=== PATIENT | male | born 2000 | race Caucasian/White ===

== ENCOUNTER 2018-08-11 02:30 | Emergency (ER) | payer OTHER, BC ==
[2018-08-11 02:38] VITALS: BP 143/74; PULSE 105; RESP 18; TEMP 99.4
[2018-08-11] MEDS ORDERED: SODIUM CHLORIDE 0.9% 1,000 ML IV STA ×2 (02:50)
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
[2018-08-11 03:11] LABS: Glucose,Whole Blood 101 mg/dL (75-99)
[2018-08-11 03:23] LABS: Basophils % (A) 0 %; Eosinophils # (A) 0.1 k/uL (0-0.7); Eosinophils % (A) 1 %; HCT 47.1 % (39.0-53.0); HGB 15.4 gm/dL (13.0-17.5); Lymphocytes # (A) 1.3 k/uL (1.0-4.8); Lymphocytes % (A) 13 %; MCH 28.1 pg (25.0-35.0); MCHC 32.6 g/dL (31.0-37.0); MCV 86.2 fL (80.0-100.0); Mean Platelet Volume 6.7; Monocytes # (A) 0.5 k/uL (0-1.0); Monocytes % (A) 5 %; Neutrophils # (A) 8.3 k/uL (1.3-7.7); Neutrophils % (A) 80 %; Platelet Count 199 k/uL (150-450); RBC 5.47 m/uL (4.30-5.90); RDW 13.1 % (11.5-15.5); WBC 10.4 k/uL (4.0-11.0)
[2018-08-11 03:28] LABS: INR 1.1 (<1.2); Prothrombin Time 11.3 sec (9.0-12.0)
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
[2018-08-11 03:38] LABS: ALT 34 U/L (21-72); AST 32 U/L (17-59); Albumin 4.5 g/dL (3.5-5.0); Alcohol <10 mg/dL; Alkaline Phosphatase 62 U/L (38-126); Amylase 80 U/L (30-110); Anion Gap 9 mmol/L; Blood Urea Nitrogen 28 mg/dL (9-20); Calcium 9.3 mg/dL (8.4-10.2); Carbon Dioxide 24 mmol/L (22-30); Chloride 109 mmol/L (98-107); Glucose 104 mg/dL (74-99); Lipase 54 U/L (23-300); Potassium 3.9 mmol/L (3.5-5.1); Sodium 142 mmol/L (137-145); Total Bilirubin 0.5 mg/dL (0.2-1.3); Total Protein 7.3 g/dL (6.3-8.2)
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
[2018-08-11 03:39] LABS: Creatine Kinase 287 U/L (55-170)
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
[2018-08-11 03:52] LABS: Creatine Kinase MB 1.4 ng/mL (0.0-2.4); Troponin I <0.012 ng/mL (0.000-0.034)
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
[2018-08-11] MEDS ORDERED: KETOROLAC 30 MG/ML 1 ML VIAL IVP STA (04:17)
[2018-08-11] MEDS ORDERED: CYCLOBENZAPRINE 10MG STARTER 3 TAB BTL PO STA (04:24)
== END 2018-08-11 04:45 | disposition home or self-care (01) ==
LOC: EC 02:30
DX: S06.0X0A Concussion without loss of consciousness, initial encounter (principal); S20.212A Contusion of left front wall of thorax, initial encounter; S80.02XA Contusion of left knee, initial encounter; S80.01XA Contusion of right knee, initial encounter; S40.012A Contusion of left shoulder, initial encounter; R10.11 Right upper quadrant pain; V48.5XXA Car driver injured in noncollision transport accident in traffic accident, initial encounter; Y92.410 Unspecified street and highway as the place of occurrence of the external cause
CPT/HCPCS: 36415; 86900; 86901; 80053; 82150; 82550; 82553; 83605; 83690; 84484; 85025; 85610; 85730; 86850; 80320; 73562; 72170; 71045; 72125; 70450; 71260; 74177; 99285; Q9967

== ENCOUNTER → 2018-08-29 | Outpatient (CLI) | payer OTHER, BC ==
--- NOTE | 2018-08-29 12:41 | XR ---
Right knee HISTORY: Right knee pain 3 views of the right knee Correlation to prior exam 08/11/2018 Bone mineralization, joint spaces and alignment are stable. Question some minimal suprapatellar incre ased density. IMPRESSION: Stable exam, normal right knee. Possible small joint effusion. Consider knee MRI.
== END | disposition home or self-care (01) ==
LOC: RADXRMAIN 12:06
PROVIDERS: ATTEND Family Medicine
DX: M25.561 Pain in right knee (principal)

== ENCOUNTER 2018-09-02 19:39 | Emergency (ER) | payer OTHER, BC ==
[2018-09-02 19:46] VITALS: RESP 18
[2018-09-02] MEDS ORDERED: SODIUM CHLORIDE 0.9% 1,000 ML IV STA (20:24)
[2018-09-02 21:05] LABS: Basophils # (A) 0.1 k/uL (0-0.2); Basophils % (A) 1 %; Eosinophils # (A) 0.2 k/uL (0-0.7); Eosinophils % (A) 3 %; HCT 47.6 % (39.0-53.0); Lymphocytes # (A) 1.9 k/uL (1.0-4.8); Lymphocytes % (A) 31 %; MCH 28.4 pg (25.0-35.0); MCHC 33.5 g/dL (31.0-37.0); MCV 84.7 fL (80.0-100.0); Mean Platelet Volume 6.6; Monocytes # (A) 0.5 k/uL (0-1.0); Monocytes % (A) 8 %; Neutrophils # (A) 3.3 k/uL (1.3-7.7); Neutrophils % (A) 55 %; Platelet Count 219 k/uL (150-450); RBC 5.62 m/uL (4.30-5.90); RDW 13.2 % (11.5-15.5); WBC 6.1 k/uL (4.0-11.0)
[2018-09-02 21:10] LABS: Appearance,Urine Clear (Clear); Bilirubin,Urine Negative (Negative); Blood,Urine Negative (Negative); Color,Urine Yellow; Glucose,Urine (UA) Negative (Negative); Ketones,Urine Negative (Negative); Leukocyte Esterase,Urine Negative (Negative); Nitrite,Urine Negative (Negative); Protein,Urine Trace (Negative); Specific Gravity,Urine 1.034 (1.001-1.035); Urobilinogen,Urine <2.0 mg/dL (<2.0)
[2018-09-02 21:16] LABS: ALT 46 U/L (21-72); AST 28 U/L (17-59); Albumin 4.4 g/dL (3.5-5.0); Alkaline Phosphatase 64 U/L (38-126); Amylase 58 U/L (30-110); Anion Gap 9 mmol/L; Blood Urea Nitrogen 30 mg/dL (9-20); Calcium 9.8 mg/dL (8.4-10.2); Carbon Dioxide 28 mmol/L (22-30); Chloride 104 mmol/L (98-107); Glucose 94 mg/dL (74-99); Lipase 53 U/L (23-300); Potassium 4.6 mmol/L (3.5-5.1); Sodium 141 mmol/L (137-145); Total Bilirubin 0.4 mg/dL (0.2-1.3); Total Protein 7.1 g/dL (6.3-8.2)
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
[2018-09-02 22:50] VITALS: BP 135/82; PULSE 69; TEMP 97.9
== END 2018-09-02 22:51 | disposition home or self-care (01) ==
LOC: EC 19:39
DX: S20.211A Contusion of right front wall of thorax, initial encounter (principal); R10.9 Unspecified abdominal pain; V89.2XXA Person injured in unspecified motor-vehicle accident, traffic, initial encounter
CPT/HCPCS: 36415; 80053; 82150; 83690; 85025; 81003; 71260; 74177; 99284; 96360; 96361; Q9967

== ENCOUNTER → 2018-09-08 | Outpatient (CLI) | payer OTHER, BC ==
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
== END | disposition home or self-care (01) ==
LOC: RADMRIMAIN 20:43
PROVIDERS: ATTEND Orthopaedic Surgery
DX: M25.561 Pain in right knee (principal)

== ENCOUNTER 2018-11-11 02:25 | Inpatient (IN) | payer BC ==
[2018-11-11] MEDS ORDERED: SODIUM CHLORIDE 0.9% 1,000 ML IV STA (02:36)
[2018-11-11] MEDS ORDERED: ONDANSETRON 4 MG/2 ML VIAL IVP STA (02:36)
[2018-11-11] MEDS ORDERED: MORPHINE SULFATE 4 MG/ML SYRINGE IV STA (02:36)
--- NOTE | 2018-11-11 02:40 | ED ---
Abdominal Pain HPI - General Chief Complaint: Abdominal Pain Stated Complaint: Abdominal Pain Time Seen by Provider: 11/11/18 02:31 Source: patient Mode of arrival: ambulatory Limitations: no limitations - History of Present Illness Initial Comments: 18-year-old male patient presents to the emergency department today for evaluation of severe right lower quadrant abdominal pain. Patient states this started around 7 PM last evening and has been steadily worsening since. Patient states that the pain is sharp and stabbing in nature and does radiate through to his back. Patient states he has been nauseated but has not vomited. Denies any fever or chills. States he is having normal urination and bowel movements. Denies any hematochezia or melena. Patient denies previous abdominal surgeries. Patient denies any recent rash, fever, chills, shortness breath, chest pain, numbness, tingling, dizziness, weakness, hematuria, dysuria, urinary urgency, urinary frequency, headache, visual changes, or any other complaints. - Related Data Home Medications Medication Instructions Recorded Confirmed Ibuprofen [Motrin] 800 mg PO TID PRN 09/02/18 09/02/18 Methocarbamol [Robaxin] 500 mg PO BID PRN 09/02/18 09/02/18 Allergies Allergy/AdvReac Type Severity Reaction Status Date / Time No Known Allergies Allergy Verified 11/11/18 02:29 Review of Systems ROS Statement: Those systems with pertinent positive or pertinent negative responses have been documented in the HPI. ROS Other: All systems not noted in ROS Statement are negative. Past Medical History Past Medical History: No Reported History History of Any Multi-Drug Resistant Organisms: None Reported Past Surgical History: No Surgical Hx Reported Additional Past Surgical History / Comment(s): nasal surgery Past Psychological History: No Psychological Hx Reported Smoking Status: Current every day smoker Past Alcohol Use History: None Reported Past Drug Use History: None Reported General Exam Limitations: no limitations General appearance: alert, in no apparent distress, other (Physical well- developed, well-nourished adult male patient in mild distress related to pain. Vital signs upon presentation are temperature 98.1, pulse 94, respirations 18, blood pressure 135/85, pulse ox 97% on room air.) Eye exam: Present: normal appearance, PERRL, EOMI. Absent: scleral icterus, conjunctival injection, periorbital swelling ENT exam: Present: normal exam, normal oropharynx, mucous membranes moist Respiratory exam: Present: normal lung sounds bilaterally. Absent: respiratory distress, wheezes, rales, rhonchi, stridor Cardiovascular Exam: Present: regular rate, normal rhythm, normal heart sounds. Absent: systolic murmur, diastolic murmur, rubs, gallop, clicks GI/Abdominal exam: Present: soft, tenderness (Right lower quadrant and right upper quadrant tenderness), guarding, rebound, normal bowel sounds. Absent: distended, rigid Neurological exam: Present: alert, oriented X3, CN II-XII intact Psychiatric exam: Present: normal affect, normal mood Skin exam: Present: warm, dry, intact, normal color. Absent: rash Course Vital Signs 11/11/18 02:27 Temperature 98.1 F Pulse Rate 94 Respiratory 18 Rate Blood Pressure 135/85 O2 Sat by Pulse 97 Oximetry Medical Decision Making - Medical Decision Making 18-year-old male patient presented to the emergency department today for evaluation of right lower quadrant abdominal pain. Physical examination did reveal abdominal guarding and tenderness to the right lower quadrant. Labs reviewed and did reveal elevated white blood cell count of 14.8. CT scan was reviewed and showed evidence for dilated appendix measuring 18 mm with a large appendicolith consistent with acute appendicitis. We did start Zosyn. Blood cultures were obtained. Patient be admitted to the hospital for surgical ev aluation. He'll be admitted to Dr. Ortega. I did discuss findings, results, plan of care with the patient, he is agreeable. - Lab Data Result diagrams: 11/11/18 02:42 11/11/18 02:42 Lab Results 11/11/18 11/11/18 11/11/18 Range/Units 02:42 02:42 02:42 WBC 14.8 H (4.0-11.0) k/uL RBC 5.56 (4.30-5.90) m/uL Hgb 15.8 (13.0-17.5) gm/dL Hct 47.6 (39.0-53.0) % MCV 85.6 (80.0-100.0) fL MCH 28.5 (25.0-35.0) pg MCHC 33.3 (31.0-37.0) g/dL RDW 13.9 (11.5-15.5) % Plt Count 225 (150-450) k/uL Neutrophils % 81 % Lymphocytes % 10 % Monocytes % 6 % Eosinophils % 1 % Basophils % 0 % Neutrophils # 11.9 H (1.3-7.7) k/uL Lymphocytes # 1.5 (1.0-4.8) k/uL Monocytes # 0.9 (0-1.0) k/uL Eosinophils # 0.2 (0-0.7) k/uL Basophils # 0.1 (0-0.2) k/uL Sodium 140 (137-145) mmol/L Potassium 4.5 (3.5-5.1) mmol/L Chloride 107 (98-107) mmol/L Carbon Dioxide 21 L (22-30) mmol/L Anion Gap 12 mmol/L BUN 22 H (9-20) mg/dL Creatinine 0.92 (0.66-1.25) mg/dL Est GFR (CKD-EPI)AfAm >90 (>60 ml/min/1.73 sqM) Est GFR (CKD-EPI)NonAf >90 (>60 ml/min/1.73 sqM) Glucose 98 (74-99) mg/dL Plasma Lactic Acid Rashid 0.6 L (0.7-2.0) mmol/L Calcium 9.9 (8.4-10.2) mg/dL Total Bilirubin 0.8 (0.2-1.3) mg/dL AST 31 (17-59) U/L ALT 50 (21-72) U/L Alkaline Phosphatase 90 (38-126) U/L Total Protein 7.8 (6.3-8.2) g/dL Albumin 5.0 (3.5-5.0) g/dL Amylase 53 (30-110) U/L Lipase 38 (23-300) U/L Urine Color Urine Appearance (Clear) Urine pH (5.0-8.0) Ur Specific [place] (1.001-1.035) Urine Protein (Negative) Urine Glucose (UA) (Negative) Urine Ketones (Negative) Urine Blood (Negative) Urine Nitrite (Negative) Urine Bilirubin (Negative) Urine Urobilinogen (<2.0) mg/dL Ur Leukocyte Esterase (Negative) 11/11/18 Range/Units 02:42 WBC (4.0-11.0) k/uL RBC (4.30-5.90) m/uL Hgb (13.0-17.5) gm/dL Hct (39.0-53.0) % MCV (80.0-100.0) fL MCH (25.0-35.0) pg MCHC (31.0-37.0) g/dL RDW (11.5-15.5) % Plt Count (150-450) k/uL Neutrophils % % Lymphocytes % % Monocytes % % Eosinophils % % Basophils % % Neutrophils # (1.3-7.7) k/uL Lymphocytes # (1.0-4.8) k/uL Monocytes # (0-1.0) k/uL Eosinophils # (0-0.7) k/uL Basophils # (0-0.2) k/uL Sodium (137-145) mmol/L Potassium (3.5-5.1) mmol/L Chloride (98-107) mmol/L Carbon Dioxide (22-30) mmol/L Anion Gap mmol/L BUN (9-20) mg/dL Creatinine (0.66-1.25) mg/dL Est GFR (CKD-EPI)AfAm (>60 ml/min/1.73 sqM) Est GFR (CKD-EPI)NonAf (>60 ml/min/1.73 sqM) Glucose (74-99) mg/dL Plasma Lactic Acid Rashid (0.7-2.0) mmol/L Calcium (8.4-10.2) mg/dL Total Bilirubin (0.2-1.3) mg/dL AST (17-59) U/L ALT (21-72) U/L Alkaline Phosphatase (38-126) U/L Total Protein (6.3-8.2) g/dL Albumin (3.5-5.0) g/dL Amylase (30-110) U/L Lipase (23-300) U/L Urine Color Yellow Urine Appearance Clear (Clear) Urine pH 5.5 (5.0-8.0) Ur Specific [place] 1.035 (1.001-1.035) Urine Protein Trace H (Negative) Urine Glucose (UA) Negative (Negative) Urine Ketones Trace H (Negative) Urine Blood Negative (Negative) Urine Nitrite Negative (Negative) Urine Bilirubin Negative (Negative) Urine Urobilinogen <2.0 (<2.0) mg/dL Ur Leukocyte Esterase Negative (Negative) - Radiology Data Radiology results: report reviewed, image reviewed CT abdomen and pelvis with contrast was obtained. Report was reviewed in its entirety. Impression by Dr. Wright shows enlarged appendix measuring up to 18 mm with appendicolith and inflammatory changes compatible with appendicitis. No fluid collection or free air. Disposition Clinical Impression: Acute appendicitis Disposition: ADMITTED IP TO THIS HOSP Condition: Serious Referrals: Berenice Hurtado MD [Primary Care Provider] - 1-2 days Decision to Admit Reason: Admit from EC
[2018-11-11] MEDS ORDERED: PIPERACILLIN-TAZOBACTAM 3.375 GM in SODIUM CHLORIDE 0.9% 100 ML IVPB STA (03:05)
[2018-11-11] MEDS ORDERED: HYDROmorphone 2 MG/ML 1 ML SYRINGE IVP STA (03:06)
[2018-11-11 03:11] LABS: Appearance,Urine Clear (Clear); Bilirubin,Urine Negative (Negative); Blood,Urine Negative (Negative); Color,Urine Yellow; Glucose,Urine (UA) Negative (Negative); Ketones,Urine Trace (Negative); Leukocyte Esterase,Urine Negative (Negative); Nitrite,Urine Negative (Negative); PH, Urine 5.5 (5.0-8.0); Protein,Urine Trace (Negative); Specific Gravity,Urine 1.035 (1.001-1.035); Urobilinogen,Urine <2.0 mg/dL (<2.0)
[2018-11-11 03:17] LABS: Basophils # (A) 0.1 k/uL (0-0.2); Basophils % (A) 0 %; Eosinophils # (A) 0.2 k/uL (0-0.7); Eosinophils % (A) 1 %; HCT 47.6 % (39.0-53.0); HGB 15.8 gm/dL (13.0-17.5); Lymphocytes # (A) 1.5 k/uL (1.0-4.8); Lymphocytes % (A) 10 %; MCH 28.5 pg (25.0-35.0); MCHC 33.3 g/dL (31.0-37.0); MCV 85.6 fL (80.0-100.0); Mean Platelet Volume 7.6; Monocytes # (A) 0.9 k/uL (0-1.0); Monocytes % (A) 6 %; Neutrophils # (A) 11.9 k/uL (1.3-7.7); Neutrophils % (A) 81 %; Platelet Count 225 k/uL (150-450); RBC 5.56 m/uL (4.30-5.90); RDW 13.9 % (11.5-15.5); WBC 14.8 k/uL (4.0-11.0)
--- NOTE | 2018-11-11 03:23 | CT ---
EXAM: CT Abdomen and Pelvis With Intravenous Contrast CLINICAL HISTORY: ITS.REASON CT Reason: Pain TECHNIQUE: Axial computed tomography images of the abdomen and pelvis with intravenous contrast. CTDI is 7.6, 7.3 mGy and DLP is 680.2 mGy-cm. This CT exam was performed using one or more of the following dose reduction techniques: automated exposure control, adjustment of the mA and/or kV according to patient size, and/or use of iterative reconstruction technique. COMPARISON: CT 09/02/18. FINDINGS: Lung bases: No acute findings. Mediastinum: Small hiatal hernia. ABDOMEN: Liver: Unremarkable. Gallbladder and bile ducts: Unremarkable. Pancreas: Unremarkable. Spleen: Unremarkable. Adrenals: Unremarkable. Kidneys and ureters: No hydronephrosis. Stomach and bowel: Mild wall thickening of the ascending colon, likely reactive. Fluid in small bowel loops, possible ileus or enteritis. No evidence of bowel obstruction. PELVIS: Appendix: Enlarged appendix measuring up to 18 mm with appendicolith and inflammatory changes compatible with appendicitis. Bladder: Slightly thickened underdistended bladder. Reproductive: Unremarkable as visualized. ABDOMEN and PELVIS: Intraperitoneal space: Small free fluid. No fluid collection or free air. Bones/joints: No acute fracture. Soft tissues: Small fat-containing umbilical hernia. Vasculature: Unremarkable. Lymph nodes: Enlarged right lower quadrant lymph nodes. IMPRESSION: Enlarged appendix measuring up to 18 mm with appendicolith and inflammatory changes compatible with appendicitis. No fluid collection or free air, <MYCVCSECTION> [employer] 11/11/18 03:20 Call Doctor Regarding Above results, called MARTHA Danielle on 11/11 03:20 (-04:00)
[2018-11-11 03:28] LABS: ALT 50 U/L (21-72); AST 31 U/L (17-59); Alkaline Phosphatase 90 U/L (38-126); Amylase 53 U/L (30-110); Anion Gap 12 mmol/L; Blood Urea Nitrogen 22 mg/dL (9-20); Calcium 9.9 mg/dL (8.4-10.2); Carbon Dioxide 21 mmol/L (22-30); Chloride 107 mmol/L (98-107); Glucose 98 mg/dL (74-99); Lipase 38 U/L (23-300); Potassium 4.5 mmol/L (3.5-5.1); Sodium 140 mmol/L (137-145); Total Bilirubin 0.8 mg/dL (0.2-1.3); Total Protein 7.8 g/dL (6.3-8.2)
[2018-11-11] MEDS: SODIUM CHLORIDE 0.9% 1,000 ML IV SCH ×2 (03:46→15:32)
[2018-11-11 03:49] LABS: Partial Thromboplastin Time 27.1 sec (22.0-30.0); Prothrombin Time 10.9 sec (9.0-12.0)
[2018-11-11] MEDS ORDERED: NALOXONE 0.4 MG/ML 1 ML VIAL IV PRN (04:23)
[2018-11-11] MEDS ORDERED: ACETAMINOPHEN TAB 325 MG TAB PO PRN (04:23)
[2018-11-11] MEDS ORDERED: ONDANSETRON 4 MG/2 ML VIAL IVP PRN (04:23)
[2018-11-11] MEDS: HYDROmorphone 0.5 MG/0.5 ML SYRINGE IVP PRN ×2 (05:17→07:18)
[2018-11-11] MEDS: HEPARIN SODIUM,PORCINE 5,000 UNIT/ML 1 ML VIAL SQ SCH ×2 (07:27→15:32)
[2018-11-11] MEDS: HYDROmorphone 1 MG/ML 1 ML SYRINGE IVP PRN ×3 (08:06→15:30)
[2018-11-11] MEDS ORDERED: diphenhydrAMINE 50 MG/ML 1 ML VIAL IVP PRN (10:18)
--- NOTE | 2018-11-11 10:20 | P.GSHP ---
<She Olvera A - Last Filed: 11/11/18 10:19> History of Present Illness H&P Date: 11/11/18 Chief Complaint: abdominal pain CHIEF COMPLAINT: Abdominal pain HISTORY OF PRESENT ILLNESS: 18-year-old male who presented to the emergency room with a chief complaint of right lower quadrant abdominal pain. Patient states the pain started around 7 PM the night he came to the hospital. He describes the pain as severe and is localized to his right lower quadrant. He reports having intermittent episodes of right lower quadrant pain over the past few months but never this severe. He reports nausea. Denies emesis. Denies constipation or diarrhea. WBC 14.8 on admission. PAST MEDICAL HISTORY: See list. PAST SURGICAL HISTORY: See list. SOCIAL HISTORY: No illicit drug use. REVIEW OF SYSTEMS: CONSTITUTIONAL: Denies fever or chills. HEENT: Denies blurred vision, vision changes, or eye pain. Denies hemoptysis CARDIOVASCULAR: Denies chest pain or pressure. RESPIRATORY: No shortness of breath. GASTROINTESTINAL: Refer to [facility] for pertinent findings HEMATOLOGIC: Denies bleeding disorders. GENITOURINARY: Denies any blood in urine. SKIN: Reports itching. Denies rash. PHYSICAL EXAM: VITAL SIGNS: Reviewed. GENERAL: Well-developed in no acute distress. HEENT: No sclera icterus. Extraocular movements grossly intact. Moist buccal mucosa. Head is atraumatic, normocephalic. ABDOMEN: Soft. Nondistended. Tenderness upon light palpation of right lower quadrant. NEUROLOGIC: Alert and oriented. Cranial nerves II through XII grossly intact. IMAGING: CT abdomen and pelvis: Enlarged appendix measuring up to 18 mm with appendicolith and inflammatory changes compatible with appendicitis. No fluid collection or free air. ASSESSMENT: 1. Right lower quadrant abdominal pain 2. Acute appendicitis 3. Leukocytosis, secondary to above PLAN: 1. NPO 2. Continue IV fluids 3. Continue antibiotics. Monitor WBC. 4. Pain control 5. Patient scheduled to undergo laparoscopic appendectomy today with Dr. Ortega. Nurse practitioner note has been reviewed by physician. Signing provider agrees with the documented findings, assessment, and plan of care. Past Medical History Past Medical History: No Reported History History of Any Multi-Drug Resistant Organisms: None Reported Past Surgical History: No Surgical Hx Reported Additional Past Surgical History / Comment(s): nasal surgery Past Psychological History: No Psychological Hx Reported Smoking Status: Current every day smoker Past Alcohol Use History: None Reported Past Drug Use History: None Reported - Past Family History Father Family Medical History: No Reported History Medications and Allergies Home Medications Medication Instructions Recorded Confirmed Type Ibuprofen [Motrin] 800 mg PO TID PRN 09/02/18 11/11/18 History Methocarbamol [Robaxin] 500 mg PO BID PRN 09/02/18 11/11/18 History Allergies Allergy/AdvReac Type Severity Reaction Status Date / Time No Known Allergies Allergy Verified 11/11/18 08:17 Surgical - Exam Vital Signs Temp Pulse Resp BP Pulse Ox 98.1 F 94 18 135/85 97 11/11/18 02:27 11/11/18 02:27 11/11/18 02:27 11/11/18 02:27 11/11/18 02:27 Results - Labs 11/11/18 02:42 11/11/18 02:42 Abnormal Lab Results - Last 24 Hours (Table) 11/11/18 11/11/18 11/11/18 Range/Units 02:42 02:42 02:42 WBC 14.8 H (4.0-11.0) k/uL Neutrophils # 11.9 H (1.3-7.7) k/uL Carbon Dioxide 21 L (22-30) mmol/L BUN 22 H (9-20) mg/dL Plasma Lactic Acid Rashid 0.6 L (0.7-2.0) mmol/L Urine Protein (Negative) Urine Ketones (Negative) 11/11/18 Range/Units 02:42 WBC (4.0-11.0) k/uL Neutrophils # (1.3-7.7) k/uL Carbon Dioxide (22-30) mmol/L BUN (9-20) mg/dL Plasma Lactic Acid Rashid (0.7-2.0) mmol/L Urine Protein Trace H (Negative) Urine Ketones Trace H (Negative) Diabetes panel 11/11/18 Range/Units 02:42 Sodium 140 (137-145) mmol/L Potassium 4.5 (3.5-5.1) mmol/L Chloride 107 (98-107) mmol/L Carbon Dioxide 21 L (22-30) mmol/L BUN 22 H (9-20) mg/dL Creatinine 0.92 (0.66-1.25) mg/dL Glucose 98 (74-99) mg/dL Calcium 9.9 (8.4-10.2) mg/dL AST 31 (17-59) U/L ALT 50 (21-72) U/L Alkaline Phosphatase 90 (38-126) U/L Total Protein 7.8 (6.3-8.2) g/dL Albumin 5.0 (3.5-5.0) g/dL Calcium panel 11/11/18 Range/Units 02:42 Calcium 9.9 (8.4-10.2) mg/dL Albumin 5.0 (3.5-5.0) g/dL Pituitary panel 11/11/18 Range/Units 02:42 Sodium 140 (137-145) mmol/L Potassium 4.5 (3.5-5.1) mmol/L Chloride 107 (98-107) mmol/L Carbon Dioxide 21 L (22-30) mmol/L BUN 22 H (9-20) mg/dL Creatinine 0.92 (0.66-1.25) mg/dL Glucose 98 (74-99) mg/dL Calcium 9.9 (8.4-10.2) mg/dL Adrenal panel 11/11/18 Range/Units 02:42 Sodium 140 (137-145) mmol/L Potassium 4.5 (3.5-5.1) mmol/L Chloride 107 (98-107) mmol/L Carbon Dioxide 21 L (22-30) mmol/L BUN 22 H (9-20) mg/dL Creatinine 0.92 (0.66-1.25) mg/dL Glucose 98 (74-99) mg/dL Calcium 9.9 (8.4-10.2) mg/dL Total Bilirubin 0.8 (0.2-1.3) mg/dL AST 31 (17-59) U/L ALT 50 (21-72) U/L Alkaline Phosphatase 90 (38-126) U/L Total Protein 7.8 (6.3-8.2) g/dL Albumin 5.0 (3.5-5.0) g/dL <Viral Ortega - Last Filed: 11/11/18 12:29> History of Present Illness As above. Patient with pain that began yesterday evening around 7:00. CAT scan shows a significant distention to his appendix with inflammatory change present. His pain has not improved despite antibiotics. Will proceed with laparoscopic, possible open appendectomy. Risks of bleeding, infection, leak, abscess, ureteral and bowel injury, conversion to an open procedure reviewed. They understand and wish to proceed. Surgical - Exam Vital Signs Temp Pulse Resp BP Pulse Ox 98.1 F 94 18 135/85 97 11/11/18 02:27 11/11/18 02:27 11/11/18 02:27 11/11/18 02:27 11/11/18 02:27 Results - Labs 11/11/18 02:42 11/11/18 02:42 Abnormal Lab Results - Last 24 Hours (Table) 11/11/18 11/11/18 11/11/18 Range/Units 02:42 02:42 02:42 WBC 14.8 H (4.0-11.0) k/uL Neutrophils # 11.9 H (1.3-7.7) k/uL Carbon Dioxide 21 L (22-30) mmol/L BUN 22 H (9-20) mg/dL Plasma Lactic Acid Rashid 0.6 L (0.7-2.0) mmol/L Urine Protein (Negative) Urine Ketones (Negative) 11/11/18 Range/Units 02:42 WBC (4.0-11.0) k/uL Neutrophils # (1.3-7.7) k/uL Carbon Dioxide (22-30) mmol/L BUN (9-20) mg/dL Plasma Lactic Acid Rashid (0.7-2.0) mmol/L Urine Protein Trace H (Negative) Urine Ketones Trace H (Negative) Diabetes panel 11/11/18 Range/Units 02:42 Sodium 140 (137-145) mmol/L Potassium 4.5 (3.5-5.1) mmol/L Chloride 107 (98-107) mmol/L Carbon Dioxide 21 L (22-30) mmol/L BUN 22 H (9-20) mg/dL Creatinine 0.92 (0.66-1.25) mg/dL Glucose 98 (74-99) mg/dL Calcium 9.9 (8.4-10.2) mg/dL AST 31 (17-59) U/L ALT 50 (21-72) U/L Alkaline Phosphatase 90 (38-126) U/L Total Protein 7.8 (6.3-8.2) g/dL Albumin 5.0 (3.5-5.0) g/dL Calcium panel 11/11/18 Range/Units 02:42 Calcium 9.9 (8.4-10.2) mg/dL Albumin 5.0 (3.5-5.0) g/dL Pituitary panel 11/11/18 Range/Units 02:42 Sodium 140 (137-145) mmol/L Potassium 4.5 (3.5-5.1) mmol/L Chloride 107 (98-107) mmol/L Carbon Dioxide 21 L (22-30) mmol/L BUN 22 H (9-20) mg/dL Creatinine 0.92 (0.66-1.25) mg/dL Glucose 98 (74-99) mg/dL Calcium 9.9 (8.4-10.2) mg/dL Adrenal panel 11/11/18 Range/Units 02:42 Sodium 140 (137-145) mmol/L Potassium 4.5 (3.5-5.1) mmol/L Chloride 107 (98-107) mmol/L Carbon Dioxide 21 L (22-30) mmol/L BUN 22 H (9-20) mg/dL Creatinine 0.92 (0.66-1.25) mg/dL Glucose 98 (74-99) mg/dL Calcium 9.9 (8.4-10.2) mg/dL Total Bilirubin 0.8 (0.2-1.3) mg/dL AST 31 (17-59) U/L ALT 50 (21-72) U/L Alkaline Phosphatase 90 (38-126) U/L Total Protein 7.8 (6.3-8.2) g/dL Albumin 5.0 (3.5-5.0) g/dL
[2018-11-11] MEDS ORDERED: IV FLUID CONTINUATION 1,000 ML IV ONE (11:00)
[2018-11-11] MEDS ORDERED: fentaNYL (PF) 50 MCG/ML 2 ML AMP IVP ONE ×2 (11:28→11:30)
[2018-11-11] MEDS ORDERED: MIDAZOLAM 2 MG/2 ML VIAL ONE (12:11)
[2018-11-11] MEDS ORDERED: LIDOCAINE 1% INJ 10MG/ML (20 ML MDV) ONE (12:11)
[2018-11-11] MEDS ORDERED: NEOSTIGMINE 1 MG/ML 10 ML VIAL ONE (12:11)
[2018-11-11] MEDS ORDERED: PROPOFOL 10 MG/ML 20 ML VIAL IV ONE (12:11)
[2018-11-11] MEDS ORDERED: ROCURONIUM BROMIDE 10 MG/ML 10 ML VIAL IV ONE (12:11)
[2018-11-11] MEDS ORDERED: SUCCINYLCHOLINE CHLORIDE 100 MG/5 ML SYR IV ONE (12:11)
[2018-11-11] MEDS ORDERED: fentaNYL (PF) 50 MCG/ML 2 ML AMP ONE (12:11)
[2018-11-11] MEDS ORDERED: GLYCOPYRROLATE 0.2 MG/ML 2 ML VIAL ONE (12:11)
[2018-11-11] MEDS ORDERED: DEXAMETHASONE SOD PHOS (MDV) 100 MG/10 ML VIAL ONE (12:11)
[2018-11-11] MEDS ORDERED: SODIUM CHLORIDE 0.9% 100 ML with ceFAZolin 2,000 MG IV ONE ×2 (12:20)
[2018-11-11] MEDS ORDERED: LACTATED RINGERS 1,000 ML IV ONE ×2 (12:45→14:45)
[2018-11-11] MEDS ORDERED: BUPIVACAINE (PF) 0.5% 30 ML VIAL SQ ONE ×2 (12:45)
[2018-11-11] MEDS: PIPERACILLIN-TAZOBACTAM 3.375 GM in SODIUM CHLORIDE 0.9% 100 ML IVPB SCH ×2 (12:53→20:39)
--- NOTE | 2018-11-11 13:30 | P.OP ---
Date of Procedure: 11/11/18 Procedure(s) Performed: PREOPERATIVE DIAGNOSIS: Acute appendicitis POSTOPERATIVE DIAGNOSIS: Same PROCEDURE: Laparoscopic appendectomy SURGEON: Shannon EBL: Total ANESTHESIA: General COMPLICATIONS: None OPERATIVE PROCEDURE: The patient was brought and placed on the operating table in the supine position. The patient was placed under general anesthesia. The abdomen was prepped and draped in the usual sterile fashion. A small vertical infraumbilical incision was made. The fascia was retracted anteriorly with Loli forceps. The Veress needle was advanced into the peritoneal cavity. The saline drop test was normal. Insufflation took place to 15 mmHg. A 5 mm trocar was then placed. An additional 5 mm suprapubic trocar was placed under direct visualization as well as a 12 mm left lower quadrant trocar under direct visualization. The appendix was inspected. It was acutely inflamed. The inflammatory reaction was primarily involving the distal one half of the appendix. The appendix was not gangrenous or perforated. The proximal 2 cm or so of the appendix appeared normal. The mesoappendix was dissected. The base of the appendix was divided using a linear 45 mm intestinal stapler. The mesentery itself was divided using a combination of the white load stapler and 12 mm clips. The area was then irrigated. No further purulence or bleeding was seen. The appendix was brought out of the peritoneal cavity through the left lower quadrant trocar site using an Endo Catch bag. The fascia at the 12 mm site was closed using a [id number] 0 Vicryl stitch. The skin at all 3 sites was closed using 4-0 Monocryl sutures. Skin glue was then applied. DISPOSITION: Stable to recovery room
[2018-11-11] MEDS: HYDROcodone/APAP 5-325MG 1 EACH TAB PO PRN ×2 (18:18→22:35)
[2018-11-11 20:37] VITALS: RESP 16
[2018-11-12] MEDS: HEPARIN SODIUM,PORCINE 5,000 UNIT/ML 1 ML VIAL SQ SCH ×2 (01:27→08:47)
[2018-11-12] MEDS: SODIUM CHLORIDE 0.9% 1,000 ML IV SCH ×2 (06:53→08:47)
[2018-11-12] MEDS: PIPERACILLIN-TAZOBACTAM 3.375 GM in SODIUM CHLORIDE 0.9% 100 ML IVPB SCH (06:54)
[2018-11-12] MEDS: HYDROcodone/APAP 5-325MG 1 EACH TAB PO PRN (07:29)
[2018-11-12 07:55] LABS: Anion Gap 8 mmol/L; Blood Urea Nitrogen 13 mg/dL (9-20); Calcium 9.2 mg/dL (8.4-10.2); Carbon Dioxide 25 mmol/L (22-30); Chloride 106 mmol/L (98-107); Glucose 98 mg/dL (74-99); Potassium 4.3 mmol/L (3.5-5.1); Sodium 139 mmol/L (137-145)
[2018-11-12 08:00] LABS: Basophils % (A) 0 %; Eosinophils % (A) 0 %; HCT 41.4 % (39.0-53.0); HGB 13.8 gm/dL (13.0-17.5); Lymphocytes # (A) 0.9 k/uL (1.0-4.8); Lymphocytes % (A) 9 %; MCHC 33.4 g/dL (31.0-37.0); MCV 86.7 fL (80.0-100.0); Mean Platelet Volume 7.9; Monocytes # (A) 0.6 k/uL (0-1.0); Monocytes % (A) 6 %; Neutrophils # (A) 8.7 k/uL (1.3-7.7); Neutrophils % (A) 84 %; Platelet Count 165 k/uL (150-450); RBC 4.78 m/uL (4.30-5.90); RDW 13.5 % (11.5-15.5); WBC 10.3 k/uL (4.0-11.0)
[2018-11-12 08:22] VITALS: BP 126/71; PULSE 61; TEMP 98
[2018-11-12] MEDS ORDERED: PANTOPRAZOLE 40 MG/10 ML VIAL IVP SCH (09:00)
--- NOTE | 2018-11-12 09:13 | P.DS ---
<She Olvera - Last Filed: 11/12/18 09:11> Providers Expected date of discharge: 11/12/18 Hospital Course: 18-year-old male who presented to the emergency room with a chief complaint of right lower quadrant abdominal pain. Patient states the pain started around 7 PM the night he came to the hospital. He describes the pain as severe and is localized to his right lower quadrant. He reports having intermittent episodes of right lower quadrant pain over the past few months but never this severe. He reports nausea. Denies emesis. Denies constipation or diarrhea. WBC 14.8 on admission. Patient was found to have acute appendicitis. He underwent laparoscopic appendectomy. Patient is doing well postoperatively. Pain is controlled on oral medications. He is tolerating diet. WBC now within normal limits. Vital signs stable. Patient is stable for discharge home today. Please see EMR for further hospital course details. Discharge diagnosis: 1. Right lower quadrant abdominal pain 2. Acute appendicitis 3. Leukocytosis, secondary to above, resolved Nurse practitioner note has been reviewed by physician. Signing provider agrees with the documented findings, assessment, and plan of care. Patient Condition at Discharge: Stable Plan - Discharge Summary Discharge Rx Participant: No New Discharge Prescriptions: New Hydrocodone/Acetaminophen [Mauk 5-325] 1 tab PO Q4HR PRN 3 Days #18 tab PRN Reason: Pain No Action Methocarbamol [Robaxin] 500 mg PO BID PRN PRN Reason: Muscle Pain Ibuprofen [Motrin] 800 mg PO TID PRN PRN Reason: Pain Discharge Medication List Ibuprofen [Motrin] 800 mg PO TID PRN 09/02/18 [History] Methocarbamol [Robaxin] 500 mg PO BID PRN 09/02/18 [History] Hydrocodone/Acetaminophen [Mauk 5-325] 1 tab PO Q4HR PRN 3 Days #18 tab 11/12/18 [Rx] Follow up Appointment(s)/Referral(s): Viral Ortega MD [Medical Doctor] - 11/19/18 3:15 pm Berenice Hurtado MD [Primary Care Provider] - 11/17/18 2:20 pm Patient Instructions/Handouts: *Surgery [facility] - Laparoscopic Cholecystectomy Discharge Instructions, Laparoscopic Cholecystectomy (DC) Activity/Diet/Wound Care/Special Instructions: No driving while taking M[place]k No lifting over 10 pounds You may shower. No soaking or tub baths Very light activity until you are reevaluated at your follow up appointment with your surgeon Discharge Disposition: HOME SELF-CARE <Viral Ortega - Last Filed: 11/12/18 09:45> Providers Date of admission: 11/11/18 04:24 Attending physician: Viral Ortega Primary care physician: Berenice Hurtado MD Hospital Course: As above. Patient doing well. We'll discharge today. Outpatient follow-up one week.
== END 2018-11-12 09:20 | disposition home or self-care (01) | DRG 343 ==
LOC: EC 02:25 → 4SSUR 04:24
PROVIDERS: ADMIT Surgery; ATTEND Surgery
PROC: 0DTJ4ZZ Resection of Appendix, Percutaneous Endoscopic Approach (ICD-10-PCS; principal; 2018-11-11 13:00)
DX: K35.80 Unspecified acute appendicitis (principal); F17.200 Nicotine dependence, unspecified, uncomplicated
CPT/HCPCS: 36415; 74177; 80048; 80053; 81003; 82150; 83605; 83690; 85025; 85610; 85730; 86850; 86900; 86901; 87040; 88304; 96361; 96365; 96375; 99285

== ENCOUNTER → 2018-12-27 | Outpatient (CLI) | payer OTHER, BC ==
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
== END | disposition home or self-care (01) ==
LOC: RADMRIMAIN 09:45
PROVIDERS: ATTEND Orthopaedic Surgery
DX: M23.041 Cystic meniscus, anterior horn of lateral meniscus, right knee (principal); M23.8X1 Other internal derangements of right knee